=== PATIENT | male | born 1980 | race Two or more races ===

== ENCOUNTER 2018-04-12 15:14 | Emergency (ER) | payer MEDICAID ==
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
--- NOTE | 2018-04-13 08:23 | Diagnostic Imaging Report ---
Right shoulder 3 views Indication: Trauma Comparison: none Findings: There is a 1.3 cm calcification inferior to the glenoid. This may represent a prior bony Bankart lesion. No gross dislocation. There may have been old trauma to the distal right clavicle. No significant focal soft tissue swelling. There is a metallic density projecting along the soft tissues of the mid humerus laterally measuring up to 5 mm. Impression: 1.3 cm calcification inferior to the glenoid. Findings may have been due to previous possibly old bony Bankart lesions due to Old dislocation. No evidence of an acute dislocation. Please correlate with clinical history and old exams. If necessary follow-up exam such as CT or MRI may be obtained. Metallic density projecting along the soft tissues of the mid humerus laterally measuring up to 5 mm. This may represent overlying external material or possibly foreign body due to previous traumatic etiology. Please correlate with clinical history. In the setting of trauma, if clinical symptoms persist and there is continued concern for an occult fracture, follow up exams in 5-7 days is suggested.
== END 2018-04-12 17:30 | disposition home or self-care (01) ==
LOC: ER 15:14
DX: S46.911A Strain of unspecified muscle, fascia and tendon at shoulder and upper arm level, right arm, initial encounter (principal); X58.XXXA Exposure to other specified factors, initial encounter; Y93.89 Activity, other specified; Y92.89 Other specified places as the place of occurrence of the external cause; Y99.8 Other external cause status
CPT/HCPCS: 73030-TC-RT; Z7502